=== PATIENT | male | born 1995 | race Caucasian/White ===

== ENCOUNTER 2021-03-02 22:46 | Emergency (ER) | payer OTHER ==
[2021-03-02 22:50] VITALS: BP 147/62; PULSE 64; TEMP 98.4; BMI 25.5
[2021-03-03] MEDS ORDERED: IBUPROFEN 600 MG TABLET (FP) PO ONE ×2 (00:09→00:22)
== END 2021-03-03 01:35 | disposition home or self-care (01) ==
LOC: JER 22:46
DX: S62.647A Nondisplaced fracture of proximal phalanx of left little finger, initial encounter for closed fracture (principal); X50.0XXA Overexertion from strenuous movement or load, initial encounter; Y92.9 Unspecified place or not applicable
CPT/HCPCS: 73130-TC-LT-FY; 99284-25

== ENCOUNTER 2021-09-17 19:35 | Emergency (ER) | payer OTHER ==
[2021-09-17 20:21] VITALS: BP 144/82; PULSE 102; BMI 24.3
[2021-09-17] MEDS ORDERED: KETOROLAC TROMETHAMINE 30 MG/1 ML VIAL IM ONE (20:47)
[2021-09-17] MEDS ORDERED: KETOROLAC TROMETHAMINE 30 MG/1 ML VIAL ONE (21:03)
== END 2021-09-17 22:55 | disposition home or self-care (01) ==
LOC: JERFT 19:35
PROC: 3E0233Z Introduction of Anti-inflammatory into Muscle, Percutaneous Approach (ICD-10-PCS; principal; 2021-09-17)
DX: R07.9 Chest pain, unspecified (principal); V49.40XA Driver injured in collision with unspecified motor vehicles in traffic accident, initial encounter
CPT/HCPCS: 71046-TC-FY; 99284-25